=== PATIENT | female | born 2000 | race Caucasian/White ===

== ENCOUNTER 2019-12-18 02:09 | Emergency (ER) | payer BC ==
[~2019-12-18] VITALS: Ht 165.1 cm; Wt 88.8 kg
[2019-12-18] MEDS ORDERED: IV RINGERS SOLUTION,LACTATED 1,000 ML IV SCH (02:16)
--- NOTE | 2019-12-18 02:16 | PHYS DOC ---
Past History Past Medical History: Migraines Smoking: Cigarettes General Adult EDM: Chief Complaint: SYNCOPE HPI: HPI: ".. I ve been feeling like maybe I had the flu... the last few days. aches.. hurt all over.. dizzy.. nauseated.. I got to feeling worse tonight.. 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 but I when to the bath room and I guess .. I passed out a little.. ".. 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 and I have a 1 yrs. old.. and probably not getting enough sleep or rest at home...." Patient is a 19 year old female who presents with above hx and complaints of syncope. Patient complains of viral syndrome-like presentation the last several days. Patient complains of generalized myalgia, arthralgia, malaise, nausea, fever, and a nonproductive cough. Patient denies any specific ill contacts . Patient does not get yearly flu vaccinations. Patient denies any recent travel outside the [place] area. Patient has had poor intake today because she felt nauseated. Patient normally follows with Dr. Fermin. Review of Systems: Review of Systems: Constitutional: Subjective fever or chills Eyes: Denies change in visual acuity HENT: Denies nasal congestion or sore throat Respiratory: Denies cough or shortness of breath Cardiovascular: Denies chest pain or edema GI: Denies abdominal pain, , vomiting, bloody stools or diarrhea . Complaints o f nausea. : Denies dysuria Musculoskeletal: Denies back pain or joint pain Integument: Denies rash Neurologic: Complaints of headache, and syncope. Deniesfocal weakness or sensory changes Endocrine: Denies polyuria or polydipsia Lymphatic: Denies swollen glands Psychiatric: Denies depression or anxiety Heart Score: HEART Score for Chest Pain: HEART Score for Chest Pain Response (Comments) Value History Slighlty/Non-Suspicious 0 Age < 45 0 Troponin < Normal Limit 0 Total 0 Risk Factors: Risk Factors: DM, Current or recent (<one month) smoker, HTN, HLP, family history of CAD, obesity. Risk Scores: Score 0 - 3: 2.5% MACE over next 6 weeks - Discharge Home Score 4 - 6: 20.3% MACE over next 6 weeks - Admit for Clinical Observation Score 7 - 10: 72.7% MACE over next 6 weeks - Early Invasive Strategies Family History: Family History: Some history of dyspareunia family members. No history of sudden . Current Medications: Current Meds: See nursing for home meds Allergies: Allergies: Allergic to penicillins Physical Exam: PE: Constitutional: Well developed, well nourished, no acute distress, non-toxic appearance. [] HENT: Normocephalic, atraumatic, bilateral external ears normal, oropharynx moist, no oral exudates, nose normal. [] Eyes: PERRLA, EOMI, conjunctiva normal, no discharge. Fundus benign. Neck: Normal range of motion, no tenderness, supple, no stridor. [] Cardiovascular:Heart rate regular rhythm, no murmur [] Lungs & Thorax: Bilateral breath sounds equal apex with a few scattered wheezes auscultation [] Abdomen: Bowel sounds normal, soft, no tenderness, no masses, no pulsatile masses. [] Skin: Warm, dry, no erythema, no rash. [] Tattoos Back: No tenderness, no CVA tenderness. [] Extremities: No tenderness, no cyanosis, no clubbing, ROM intact, no edema. [] No cording appreciated Neurologic: Alert and oriented X 3, normal motor function, normal sensory function, no focal deficits noted. [] DTRs +2 patellar brachial. No drift. Ambulatory without problems. Psychologic: Affect anxious., judgement normal, mood normal. [] EKG: EKG: My interpretation of EKG shows a sinus rhythm at 73 bpm. No findings of acute STEMI of contralateral changes Repeat EKG at 449 hours shows slightly irregular sinus rhythm. No findings of acute STEMI of contralateral changes. Does show a sinus bradycardia at 56. Overall no morphology changes [] Radiology/Procedures: Radiology/Procedures: [][address] [address] IMAGING REPORT Signed PATIENT: SHALINI ALMAGUER ACCOUNT: [id number] : 2000 LOCATION: ER AGE: 19 SEX: F EXAM STATUS: REG ER ORD. PHYSICIAN: CAROLE DOTSON MD REASON: syncope, dyspnea PROCEDURE: CHEST PA & LATERAL EXAM: PA and Lateral Views of the Chest DATE: 12/18/2019 4:36 AM INDICATION: Syncope, dyspnea COMPARISON: No Prior FINDINGS: The heart is not enlarged. Mediastinal and hilar contours are normal. No focal parenchymal airspace opacity. No pleural effusion or pneumothorax. IMPRESSION: 1. No radiographic evidence for acute cardiopulmonary process. Electronically signed by: Naga Encinas MD (12/18/2019 5:25 AM) [facility] DICTATED AND SIGNED BY: NAGA ENCINAS MD DATE: 12/18/19524 CC: CAROLE DOTSON MD; BROOKS FERMIN MD ~ [address] [address] IMAGING REPORT Signed PATIENT: SHALINI ALMAGUER ACCOUNT: [id number] : 2000 LOCATION: ER AGE: 19 SEX: F EXAM STATUS: REG ER ORD. PHYSICIAN: CAROLE DOTSON MD REASON: syncope, headache. fall PROCEDURE: CT HEAD AND CERVICAL SPINE WO EXAM: CT HEAD WITHOUT IV CONTRAST CLINICAL HISTORY: syncope, headache. fall COMPARISON: None. TECHNIQUE: Routine CT of the head without contrast. Soft tissues and bone windows were reviewed. PQRS compliance statement - One or more of the following individualized dose reduction techniques were utilized for this study: 1. Automated exposure control 2. Adjustment of the mA and/or kV according to patient size 3. Use of iterative reconstruction technique FINDINGS: There is no evidence of hemorrhage, mass or extra-axial fluid collection. Bowman-white differentiation is maintained with no evidence of edema. There is no mass effect or shift of the intracranial structures. The ventricles, basilar cisterns and cortical sulci are normal in size and configuration for the patients stated age. The cerebellum and brainstem are unremarkable. The calvarium demonstrates no evidence of fracture or focal lesion. There is normal aeration of the visualized paranasal sinuses and mastoid air cells. The visualized portions of the orbits are normal. IMPRESSION: No evidence for acute intracranial process. EXAM: CT CERVICAL SPINE WITHOUT IV CONTRAST CLINICAL HISTORY: syncope, headache. fall COMPARISON: None available. TECHNIQUE: Helical CT of the cervical spine was performed. Axial, coronal and sagittal reformatted images were also performed. PQRS compliance statement - One or more of the following individualized dose reduction techniques were utilized for this study: 1. Automated exposure control 2. Adjustment of the mA and/or kV according to patient size 3. Use of iterative reconstruction technique FINDINGS: There is preservation of height of the vertebral bodies with normal bone density. No acute fracture. There is normal alignment of the cervical spine. No spondylolisthesis. The height of the intervertebral discs is maintained. IMPRESSION: No evidence for acute cervical spine fracture or subluxation. Electronically signed by: Naga Encinas MD (12/18/2019 5:22 AM) [facility] DI[facility]ATED AND SIGNED BY: NAGA ENCINAS MD DATE: 12/18/19521 CC: CAROLE DOTSON MD; BROOKS FERMIN MD ~ Course & Med Decision Making: Course & Med Decision Making Pertinent Labs and Imaging studies reviewed. (See chart for details) Patient get adequate rest. Patient push fluids. Patient take daily aspirin. Patient return if any concerns. Follow-up primary care. Review ED record and work-up. Return anytime if any concerns. At time discharge pt. reports marked improvement. No longer dizzy. Will follow up with primary. Impression: 1. Viral syndrome 2. History of syncope 3. Mild dehydration [] Dragon Disclaimer: Dragon Disclaimer: This electronic medical record was generated, in whole or in part, using a voice recognition dictation system. Departure Departure: Disposition: 01 HOME/RESIDENCE PRIOR TO ADM Condition: STABLE Dragon Disclaimer This chart was dictated in whole or in part using Voice Recognition software in a busy, high-work load, and often noisy Emergency Department environment. It may contain unintended and wholly unrecognized errors or omissions. CAROLE DOTSON MD Dec 18, 2019 02:16
--- NOTE | 2019-12-18 02:32 | EKG ---
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
[2019-12-18] MEDS ORDERED: ONDANSETRON PF 4 MG/2 ML VIAL. IVP ONE (03:30)
[2019-12-18 03:35] LABS: BASO % 1 % (0-3); EOS # 0.2 x10^3/uL (0.0-0.7); EOS % 3 % (0-3); HEMATOCRIT 37.4 % (36.0-47.0); HEMOGLOBIN 12.5 g/dL (12.0-15.5); LYMPH # 2.7 x10^3/uL (1.0-4.8); LYMPH % 36 % (24-48); MEAN CORPUSCULAR HEMOGLOBIN 28 pg (25-35); MEAN CORPUSCULAR HGB CONC 33 g/dL (31-37); MEAN CORPUSCULAR VOLUME 84 fL (79-100); MONO # 0.6 x10^3/uL (0.0-1.1); MONO % 8 % (0-9); NEUT # 3.9 x10^3uL (1.8-7.7); NEUT % 53 % (31-73); PLATELET COUNT 208 x10^3/uL (140-400); RED BLOOD COUNT 4.44 x10^6/uL (3.50-5.40); RED CELL DISTRIBUTION WIDTH 13.3 % (11.5-14.5); WHITE BLOOD COUNT 7.4 x10^3/uL (4.0-11.0)
[2019-12-18 03:50] LABS: CALCIUM 9.1 mg/dL (8.5-10.1); CREATININE 0.9 mg/dL (0.6-1.0); GFR 79.8; POTASSIUM 3.6 mmol/L (3.5-5.1)
[2019-12-18 03:50] LABS: BARBITURATES NEG (NEG); BENZODIAZEPINES NEG (NEG); CANNABINOIDS NEG (NEG); COCAINE NEG (NEG); METHADONE NEG (NEG); OPIATES NEG (NEG); PHENCYCLIDINE NEG (NEG)
[2019-12-18 03:55] LABS: ALBUMIN 3.7 g/dL (3.4-5.0); DIRECT BILIRUBIN 0.1 mg/dL (0.0-0.2); MAGNESIUM 1.8 mg/dL (1.8-2.4); TOTAL BILIRUBIN 0.3 mg/dL (0.2-1.0); TOTAL PROTEIN 7.1 g/dL (6.4-8.2)
[2019-12-18 03:57] LABS: AMPHETAMINE/METHAMPHETAMINE NEG (NEG)
[2019-12-18 04:04] LABS: INFLUENZA A PATIENT NEGATIVE (NEGATIVE); INFLUENZA B PATIENT NEGATIVE (NEGATIVE)
[2019-12-18 04:34] LABS: BILIRUBIN,URINE NEG (NEG); CLARITY,URINE CLEAR; COLOR,URINE STRAW; GLUCOSE,URINE NEG (NEG)
[2019-12-18 04:35] LABS: BACTERIA,URINE FEW /HPF (0-FEW); NITRITE,URINE NEG (NEG); RBC,URINE OCC /HPF (0-2); SQUAMOUS EPITHELIAL CELL,UR OCC /LPF; UROBILINOGEN,URINE 0.2 mg/dL (0.2 mg/dL); WBC,URINE OCC /HPF (0-4)
[2019-12-18 04:35] LABS: U PREG PATIENT NEGATIVE (NEG)
[2019-12-18 04:38] LABS: SEDIMENTATION RATE 5 (0-25)
--- NOTE | 2019-12-18 04:58 | EKG ---
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
[2019-12-18] MEDS ORDERED: ACETAMINOPHEN 500 MG TABLET PO ONE (05:15)
--- NOTE | 2019-12-18 05:25 | RAD ---
EXAM: CT HEAD WITHOUT IV CONTRAST CLINICAL HISTORY: syncope, headache. fall COMPARISON: None. TECHNIQUE: Routine CT of the head without contrast. Soft tissues and bone windows were reviewed. PQRS compliance statement - One or more of the following individualized dose reduction techniques were utilized for this study: 1. Automated exposure control 2. Adjustment of the mA and/or kV according to patient size 3. Use of iterative reconstruction technique FINDINGS: There is no evidence of hemorrhage, mass or extra-axial fluid collection. Bowman-white differentiation is maintained with no evidence of edema. There is no mass effect or shift of the intracranial structures. The ventricles, basilar cisterns and cortical sulci are normal in size and configuration for the patients stated age. The cerebellum and brainstem are unremarkable. The calvarium demonstrates no evidence of fracture or focal lesion. There is normal aeration of the visualized paranasal sinuses and mastoid air cells. The visualized portions of the orbits are normal. IMPRESSION: No evidence for acute intracranial process. EXAM: CT CERVICAL SPINE WITHOUT IV CONTRAST CLINICAL HISTORY: syncope, headache. fall COMPARISON: None available. TECHNIQUE: Helical CT of the cervical spine was performed. Axial, coronal and sagittal reformatted images were also performed. PQRS compliance statement - One or more of the following individualized dose reduction techniques were utilized for this study: 1. Automated exposure control 2. Adjustment of the mA and/or kV according to patient size 3. Use of iterative reconstruction technique FINDINGS: There is preservation of height of the vertebral bodies with normal bone density. No acute fracture. There is normal alignment of the cervical spine. No spondylolisthesis. The height of the intervertebral discs is maintained. IMPRESSION: No evidence for acute cervical spine fracture or subluxation. Electronically signed by: Naga Burns MD (12/18/2019 5:22 AM) [facility]
--- NOTE | 2019-12-18 05:27 | RAD ---
EXAM: PA and Lateral Views of the Chest DATE: 12/18/2019 4:36 AM INDICATION: Syncope, dyspnea COMPARISON: No Prior FINDINGS: The heart is not enlarged. Mediastinal and hilar contours are normal. No focal parenchymal airspace opacity. No pleural effusion or pneumothorax. IMPRESSION: 1. No radiographic evidence for acute cardiopulmonary process. Electronically signed by: Naga Burns MD (12/18/2019 5:25 AM) [facility]
[2019-12-18 06:15] VITALS: BP 107/70
== END 2019-12-18 06:20 | disposition home or self-care (01) ==
LOC: ER 02:09
DX: B34.9 Viral infection, unspecified (principal); E86.0 Dehydration; G43.909 Migraine, unspecified, not intractable, without status migrainosus; F17.210 Nicotine dependence, cigarettes, uncomplicated; Z88.0 Allergy status to penicillin
CPT/HCPCS: 36415; 70450; 71046; 72125; 80048; 80076; 80307; 81001; 81025; 82550; 83690; 83735; 83880; 84443; 84484; 85025; 85379; 85610; 85651; 85730; 87070; 87804; 87880; 93005; 96361; 96374; 99285; J2405; J7120